=== PATIENT | female | born 1970 | race Hispanic/Latino ===

== ENCOUNTER 2019-07-19 06:33 | Emergency (ER) | payer OTHER ==
[~2019-07-19] VITALS: Ht 175.3 cm; Wt 147.4 kg
[~2019-07-19 06:33] MED LIST: METOPROLOL TART25 MG PO
[2019-07-19] MEDS ORDERED: AMLODIPINE BESYL5 MG PO (06:39)
[2019-07-19] MEDS ORDERED: METFORMIN HCL1000 MG PO (06:39)
[2019-07-19] MEDS ORDERED: TRULICITY SQ (06:39)
--- NOTE | 2019-07-19 06:46 | NUR ---
CALLED AND SPOKE TO [facility] REGARDING XRAY ORDERS. ACKNOWLEDGED.
[2019-07-19] MEDS ORDERED: HYDROCODONE/APAP 10MG-325MG TAB PO ONE (07:00)
--- NOTE | 2019-07-19 07:43 | Diagnostic Imaging Report ---
RIGHT ANKLE RADIOGRAPHS 3 VIEWS, RIGHT TIB-FIB RADIOGRAPHS 2 VIEWS HISTORY: Pain. COMPARISON: None available. FINDINGS: Bones: Nondisplaced right lateral malleolar tip fracture below the level of the tibial plafond. Osseous alignment is within normal limits. Joints: The joint spaces are well-maintained. Soft tissues: Soft tissue swelling about the right ankle. Calcified calcaneal enthesophytes. Focal calcifications distal to the tips of the right ankle medial and lateral malleoli. IMPRESSION: 1. Acute nondisplaced right lateral malleolar tip fracture with surrounding soft tissue swelling. 2. Calcifications distal to the tips of the right ankle medial and lateral malleoli are likely sequelae of remote ankle injury. 3. Calcaneal enthesopathy. Signed by: Will Terry DO on 07/19/2019 7:40 AM
--- NOTE | 2019-07-19 07:45 | Diagnostic Imaging Report ---
LEFT ANKLE RADIOGRAPH 3 VIEWS HISTORY: Pain. COMPARISON: None available. FINDINGS: Bones: No acute displaced fracture. Osseous alignment is within normal limits. Joints: The joint spaces are well-maintained. Subtle dorsal osteophytes in the midfoot.. Soft tissues: Mild soft tissue swelling about the ankle. Calcified calcaneal enthesophytes. IMPRESSION: 1. No acute radiographic abnormality. 2. Mild soft tissue swelling about the ankle without underlying osseous injury. 3. Calcaneal in the subcutaneous. 4. Mild degenerative changes in the midfoot. Signed by: Will Terry DO on 07/19/2019 7:42 AM
[2019-07-19] MEDS ORDERED: ULTRAM50 MG PO (07:58)
--- NOTE | 2019-07-19 08:30 | NUR ---
patient informed of radiology reports, patient now reporting to er md that her left knee was hurting and tender. orders placed in chart by er md for xray of left knee.
--- NOTE | 2019-07-19 08:34 | NUR ---
THROUGHLY EVALED PT AND ASKED SPECIFIC IF LOWER LEFT LEG PAIN AND PT DENIED. AT D/C PT'S NOW DEMANDING MORE FILMS TO LEFT LEG SINCE, "RIGHT LEG IS BROKEN AND LEFT LEG HAS A LOT OF BRUISING." XRAY ORDER PLACED, RADIOLOGY NOTIFIED, EXPLAINED D/C WILL BE DELAYED D/T ADDED FILMS.
--- NOTE | 2019-07-19 08:55 | NUR ---
MULTIPLE UPDATES GIVEN. 2 DISC WITH ALL XRAYS GIVEN TO PT WITH EXPLANATION OF F/U.
--- NOTE | 2019-07-19 09:33 | Diagnostic Imaging Report ---
Left tib-fib radiographs, 3 views Clinical indication: Fall, pain Comparison: Left ankle radiographs dated 07/19/2019 Findings: There is no radiographic evidence of acute fracture or dislocation. The joint spaces are well-maintained. There is moderate left malleolar soft tissue swelling. Impression: Moderate lateral malleolar soft tissue swelling without radiographic evidence of acute fracture or dislocation. Signed by: Lazaro Paredes MD on 07/19/2019 9:29 AM
== END 2019-07-19 10:30 | disposition home or self-care (01) ==
LOC: ER 06:33
DX: S82.64XA Nondisplaced fracture of lateral malleolus of right fibula, initial encounter for closed fracture (principal); E11.9 Type 2 diabetes mellitus without complications; I10 Essential (primary) hypertension; E66.01 Morbid (severe) obesity due to excess calories; Z68.42 Body mass index [BMI] 45.0-49.9, adult; W17.89XA Other fall from one level to another, initial encounter; Y93.9 Activity, unspecified; Y92.008 Other place in unspecified non-institutional (private) residence as the place of occurrence of the external cause
CPT/HCPCS: 99284